=== PATIENT | female | born 1995 | race African-American/Black ===

== ENCOUNTER 2019-02-07 20:38 | Emergency (ER) | payer OTHER ==
[~2019-02-07] VITALS: Ht 170.2 cm; Wt 59.0 kg
[2019-02-07 20:39] VITALS: BP 120/76
[2019-02-07 22:18] LABS: URINE BILIRUBIN NEGATIVE (Negative); URINE BLOOD TRACE (Negative); URINE CLARITY SL CLOUDY; URINE COLOR YELLOW; URINE GLUCOSE-RANDOM* NEGATIVE (Negative); URINE KETONES NEGATIVE (Negative); URINE NITRITE-REFLEX NEGATIVE (Negative); URINE PROTEIN (DIPSTICK) NEGATIVE (Negative); URINE UROBILINOGEN 0.2 E.U./dl (0.2-1.0)
[2019-02-07 22:21] LABS: URINE LEUKOCYTES-REFLEX 2+ (Negative)
[2019-02-07 22:26] LABS: BACTERIA-REFLEX >30 Many /HPF (None Seen); CASTS None Seen /LPF (None Seen); CRYSTALS None Seen /LPF (None Seen); MUCUS 0-3 Light strn/LPF (None Seen); SQUAMOUS >10 Many /LPF (0-3); URINE RBC 0-2 Rare /HPF (0-2); URINE WBC-REFLEX 6-15 Few /HPF (0-5)
[2019-02-07] MEDS ORDERED: MACROBID 100 M100 MG PO (22:40)
== END 2019-02-07 22:56 | disposition home or self-care (01) ==
LOC: ER 20:38
PROVIDERS: Physician Assistant
DX: N89.8 Other specified noninflammatory disorders of vagina (principal)

== ENCOUNTER 2019-02-25 09:49 | Emergency (ER) | payer OTHER ==
[~2019-02-25] VITALS: Ht 167.6 cm; Wt 65.8 kg
[~2019-02-25 09:49] MED LIST: MACROBID 100 M100 MG PO
[2019-02-25 10:17] LABS: URINE BLOOD TRACE (Negative); URINE CLARITY CLOUDY; URINE COLOR YELLOW; URINE GLUCOSE-RANDOM* NEGATIVE (Negative); URINE KETONES 3+ (Negative); URINE NITRITE-REFLEX NEGATIVE (Negative); URINE PROTEIN (DIPSTICK) NEGATIVE (Negative); URINE SPECIFIC GRAVITY >= 1.030 (1.005-1.035); URINE UROBILINOGEN 0.2 E.U./dl (0.2-1.0)
[2019-02-25 10:19] LABS: URINE LEUKOCYTES-REFLEX 1+ (Negative)
[2019-02-25 10:22] LABS: ICTOTEST (BILI CONFIRMATORY) Negative (Negative); URINE BILIRUBIN NEGATIVE (Negative)
[2019-02-25 10:23] LABS: URINE REDUCING SUBSTANCE NEGATIVE
[2019-02-25 10:33] LABS: AMORPHOUS URATES Moderate /LPF (None Seen); CASTS None Seen /LPF (None Seen); SQUAMOUS >10 Many /LPF (0-3); URINE RBC None Seen /HPF (0-2); URINE WBC-REFLEX 0-5 Rare /HPF (0-5)
[2019-02-25] MEDS ORDERED: FLAGYL500 M1 PO (11:35)
[2019-02-25] MEDS ORDERED: DOXYCYCLINE 10100 MG PO (11:35)
[2019-02-25 11:55] VITALS: BP 121/76
== END 2019-02-25 11:56 | disposition home or self-care (01) ==
LOC: ER 09:49
PROVIDERS: Emergency Medicine
DX: N73.0 Acute parametritis and pelvic cellulitis (principal); Z90.12 Acquired absence of left breast and nipple